=== PATIENT | female | born 1980 | race Caucasian/White ===

== ENCOUNTER 2021-03-20 13:41 | Emergency (ER) | payer SELFPAY ==
[~2021-03-20] VITALS: Ht 167.6 cm; Wt 86.2 kg
[2021-03-20] MEDS: SODIUM CHLORIDE 0.9% 1000ML 1,000 ML IV SCH ×2 (13:00→16:14)
[2021-03-20] MEDS ORDERED: SODIUM CHLORIDE 0.9% 1000ML 1,000 ML IV SCH ×2 (13:45→16:15)
[2021-03-20 14:12] LABS: BASOPHILS # (AUTO) 0.1 (0.0-0.1); EOSINOPHILS # (AUTO) 0.1 (0.0-0.4); EOSINOPHILS % 0.9 % (0.0-6.0); HEMOGLOBIN 12.8 g/dL (12.0-16.0); LYMPHOCYTES # (AUTO) 2.1 (1.0-3.2); LYMPHOCYTES % 14.1 % (18.0-39.1); MEAN CORPUSCULAR HEMOGLOBIN 31.7 pg (28-32); MEAN CORPUSCULAR HGB CONC 31.2 g/dL (31-35); MEAN CORPUSCULAR VOLUME 101.5 fL (81-99); MONOCYTES # (AUTO) 0.8 (0.2-0.8); MONOCYTES % 5.7 % (4.4-11.3); NEUTROPHILS # (AUTO) 11.4 (2.1-6.9); NEUTROPHILS % 77.1 % (38.7-80.0); PLATELET COUNT 353 x10e3/uL (140-360); RED BLOOD COUNT 4.04 x10e6/uL (3.6-5.1); RED CELL DISTRIBUTION WIDTH 13.4 % (11.7-14.4)
[2021-03-20 14:21] LABS: CLARITY,URINE CLEAR (CLEAR); COLOR,URINE YELLOW (YELLOW); KETONES,URINE >=160 (NEGATIVE); LEUKOCYTE ESTERASE ,URINE NEGATIVE (NEGATIVE); NITRITE,URINE NEGATIVE (NEGATIVE); PROTEIN,URINE DIPSTICK NEGATIVE (NEGATIVE); URINE UROBILINOGEN 0.2 mg/dL (0.2 - 1)
[2021-03-20 14:34] LABS: EPITHELIAL CELLS,URINE FEW /LPF
[2021-03-20 14:36] LABS: ALANINE AMINOTRANSFERASE 14 IU/L (0-55); ALBUMIN 3.2 g/dL (3.5-5.0); ALBUMIN/GLOBULIN RATIO 0.8 (0.8-2.0); ALKALINE PHOSPHATASE 94 IU/L (40-150); BLOOD UREA NITROGEN 13 mg/dL (7-26); BUN/CREATININE RATIO 10 (6-25); CALCIUM 8.6 mg/dL (8.4-10.2); CHLORIDE 100 mmol/L (98-107); CREATININE, SERUM 1.32 mg/dL (0.57-1.11); EST GLOMERULAR FILTRATION RATE 44 ML/MIN (60-); POTASSIUM 4.5 mmol/L (3.5-5.1); SODIUM 134 mmol/L (136-145)
[2021-03-20 14:41] LABS: GLUCOSE 758 mg/dL (74-118)
[2021-03-20] MEDS: DEXTROSE 5%/0.45% SOD CHL 1,000 ML IV SCH ×2 (14:45→16:13)
[2021-03-20] MEDS ORDERED: MAGNESIUM SULF 1GRAM/DEXTROSE 100 ML IV PRN (14:45)
[2021-03-20] MEDS ORDERED: INSULIN REGULAR, HUMAN 3ML VL 100 UNIT in SODIUM CHLORIDE 0.9% 100 ML IV SCH ×2 (14:45)
[2021-03-20] MEDS ORDERED: POTASSIUM CHLORIDE 20MEQ/100ML 100 ML INJ PRN (14:45)
[2021-03-20] MEDS ORDERED: POTASSIUM CHLORIDE 20MEQ/100ML 200 ML IV PRN (14:45)
[2021-03-20 14:59] LABS: ANION GAP 33.5 mmol/L (8-16)
[2021-03-20 15:21] LABS: CARBON DIOXIDE < 5 mmol/L (22-29)
[2021-03-20] MEDS ORDERED: METOCLOPRAMIDE HCL 10 MG/2ML VIAL ONE (15:43)
[2021-03-20] MEDS ORDERED: ONDANSETRON HCL INJ 2MG/ML 2ML 2 MG/ML VIAL ONE (16:06)
[2021-03-20] MEDS ORDERED: ONDANSETRON HCL INJ 2MG/ML 2ML 2 MG/ML VIAL IV NR (16:07)
[2021-03-20] MEDS ORDERED: SODIUM BICARBONATE 8.4% INJ 50 ML SYR IV STA (16:13)
[2021-03-20] MEDS ORDERED: METOCLOPRAMIDE HCL 10 MG/2ML VIAL IV NR (16:15)
== END 2021-03-20 18:30 | disposition other institution (70) ==
LOC: ER 15:04
DX: E11.65 Type 2 diabetes mellitus with hyperglycemia (principal); E11.10 Type 2 diabetes mellitus with ketoacidosis without coma; R11.2 Nausea with vomiting, unspecified; R19.7 Diarrhea, unspecified; Z20.822 Contact with and (suspected) exposure to COVID-19
CPT/HCPCS: 36415; 51700; 71045; 80053; 81001; 82948; 85025; 93005; 99284; J2405; J2765; J7030; U0002; J1817; J7050